=== PATIENT | female | born 2005 | race Two or more races ===

== ENCOUNTER 2025-04-21 17:46 | Emergency (ER) | payer OTHER ==
[~2025-04-21] VITALS: Ht 167.6 cm; Wt 100.3 kg
[2025-04-21 17:57] VITALS: BP 127/78; TEMP 97.6; O2SAT 100
== END 2025-04-21 19:53 | disposition home or self-care (01) ==
LOC: M ED 17:46
DX: Z32.01 Encounter for pregnancy test, result positive (principal); J45.909 Unspecified asthma, uncomplicated

== ENCOUNTER → 2025-06-02 | Outpatient (REF) | payer OTHER | LOC: M PLALAB 15:19 | PROVIDERS: ATTEND Advanced Practice Midwife | DX: Z53.9 Procedure and treatment not carried out, unspecified reason (principal) ==

== ENCOUNTER → 2025-06-02 | Outpatient (CLI) | payer OTHER ==
[2025-06-02 18:32] LABS: Trichomonas vaginalis (AMP) NOT DETECTED (NEGATIVE)
[2025-06-02 18:50] LABS: PLATELET COUNT, AUTOMATED 316 10^3/uL (150-450)
[2025-06-02 18:56] LABS: GC DNA AMPLIFICATION NEGATIVE (NEGATIVE)
[2025-06-02 19:49] LABS: HIV 1&2 SCREEN NEGATIVE (NEGATIVE)
[2025-06-02 19:57] LABS: HEPATITIS C VIRUS ABY INDEX < 0.02 INDEX (<0.8)
== END ==
LOC: M PLALAB 15:25
PROVIDERS: ATTEND Advanced Practice Midwife
DX: Z34.81 Encounter for supervision of other normal pregnancy, first trimester (principal); Z3A.00 Weeks of gestation of pregnancy not specified

== ENCOUNTER → 2025-06-30 | Outpatient (REF) | payer OTHER | LOC: M LAB REF 14:30 | PROVIDERS: ATTEND Nurse Practitioner Family | DX: Z34.82 Encounter for supervision of other normal pregnancy, second trimester (principal) ==

== ENCOUNTER → 2025-08-02 | Outpatient (CLI) | payer OTHER | LOC: M WHC 13:03 | PROVIDERS: ATTEND Nurse Practitioner Family | DX: Z34.82 Encounter for supervision of other normal pregnancy, second trimester (principal) ==

== ENCOUNTER → 2025-08-31 | Outpatient (CLI) | payer OTHER | LOC: M WHC 13:30 | PROVIDERS: ATTEND Nurse Practitioner Family | DX: Z34.82 Encounter for supervision of other normal pregnancy, second trimester (principal) ==

== ENCOUNTER 2025-09-13 10:11 | Emergency (ER) | payer OTHER ==
[2025-09-13] MEDS ORDERED: PRENTAB77 PO ×2 (10:45)
[2025-09-13] MEDS ORDERED: CEPH500C PO (13:16)
[2025-09-13] MEDS ORDERED: FAMO20TA PO (13:16)
== END 2025-09-13 10:15 | disposition admitted as inpatient to this hospital (09) ==
LOC: M ED 10:11
DX: Z53.21 Procedure and treatment not carried out due to patient leaving prior to being seen by health care provider (principal)

== ENCOUNTER 2025-09-13 10:20 | Outpatient (CLI) | payer OTHER ==
[~2025-09-13] VITALS: Ht 165.1 cm; Wt 103.1 kg
[2025-09-13 10:40] VITALS: BP 116/67
[2025-09-13] MEDS ORDERED: PRENTAB77 PO ×2 (10:45)
[2025-09-13] MEDS ORDERED: HOME MED LIST COMPLETE! XX SCH (10:50)
[2025-09-13] MEDS ORDERED: FAMOTIDINE 20 MG TAB PO SCH (12:00)
[2025-09-13] MEDS ORDERED: PILL CUTTER 1 EACH XX PRN ×2 (12:05→12:40)
[2025-09-13] MEDS: FAMOTIDINE 20 MG TAB PO SCH (12:31)
[2025-09-13 12:33] VITALS: BP 99/59
[2025-09-13 12:34] LABS: BASO # 0.0 10^3/uL (0.0-0.2); BASO % 0.1 % (0.0-1.0); EOS # 0.0 10^3/uL (0.0-0.5); EOS % 0.3 % (0.0-3.0); LYMPH # 1.5 10^3/uL (1.5-5.0); LYMPH % 19.6 % (24.0-44.0); MONO # 0.5 10^3/uL (0.0-0.8); MONO % 6.7 % (2.0-8.0); NEUTROPHILS # 5.4 10^3/uL (1.5-8.5); NEUTROPHILS % 72.6 % (36.0-66.0); PLATELET COUNT, AUTOMATED 247 10^3/uL (150-450)
[2025-09-13 12:57] LABS: APPEARANCE, URINE CLOUDY (CLEAR); BACTERIA, URINE AUTO 1+ (NEGATIVE); BILIRUBIN, URINE AUTO NEGATIVE (NEGATIVE); BLOOD, URINE BLOOD NEGATIVE (NEGATIVE); GLUCOSE, URINE (UA) AUTO NEGATIVE (NEGATIVE); KETONE, URINE AUTO NEGATIVE (NEGATIVE); LEUKOCYTE ESTERASE, URINE AUTO 2+ (NEGATIVE); MUCUS, URINE SMALL (NEGATIVE); NITRITE, URINE AUTO NEGATIVE (NEGATIVE); PROTEIN, URINE AUTO 1+ mg/dL (NEGATIVE); RBC, URINE AUTO 4 /HPF (0-3); SPECIFIC GRAVITY URINE AUTO 1.019 (1.002-1.035); SQUAMOUS EPITHELIAL CELL UR AU 14 /HPF (0-6); UROBILINOGEN, URINE AUTO 0.2 mg/dL (0.0-2.0); WBC, URINE AUTO 4 /HPF (0-3)
[2025-09-13 12:59] LABS: ALT/SGPT 38 U/L (7.0-40); AST/SGOT 55 U/L (<34); CALCIUM LEVEL 9.1 MG/DL (8.5-10.1); CARBON DIOXIDE LEVEL 25 MMOL/L (20-31); CHLORIDE LEVEL 105 MMOL/L (98-107); CREATININE FOR GFR 0.62 MG/DL (0.55-1.30); GLOMERULAR FILTRATION RATE > 90.0 (>60); POTASSIUM SERUM 3.3 MMOL/L (3.5-5.1); SODIUM LEVEL 138 MMOL/L (136-145)
[2025-09-13] MEDS ORDERED: CEPH500C PO (13:16)
[2025-09-13] MEDS ORDERED: FAMO20TA PO (13:16)
[2025-09-13] MEDS: CEPHALEXIN 500 MG CAP PO ONE (13:22)
== END 2025-09-13 13:25 | disposition home or self-care (01) ==
LOC: M LDO 10:20
PROVIDERS: ATTEND Obstetrics & Gynecology
DX: O23.42 Unspecified infection of urinary tract in pregnancy, second trimester (principal); N39.0 Urinary tract infection, site not specified; Z3A.25 25 weeks gestation of pregnancy
CPT/HCPCS: 36415; 59025; 80053; 81001; 85025; 87086; G0463